=== PATIENT | male | born 1960 | race African-American/Black ===

== ENCOUNTER 2017-07-04 17:41 | Emergency (ER) | payer OTHER ==
[~2017-07-04] VITALS: Ht 190.5 cm; Wt 72.6 kg
[~2017-07-04 17:41] MED LIST: LACTULOSE20 GM/301 ORAL
[2017-07-04 17:43] VITALS: BP 126/85
[2017-07-04 18:18] VITALS: BP 123/77
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
== END 2017-07-04 18:22 | disposition home or self-care (01) ==
LOC: EDBD 17:41 → EMR 18:04
DX: R10.9 Unspecified abdominal pain (principal); Z85.028 Personal history of other malignant neoplasm of stomach; Z85.05 Personal history of malignant neoplasm of liver; Y09 Assault by unspecified means
CPT/HCPCS: 99282

== ENCOUNTER 2019-10-28 23:32 | Emergency (ER) | payer OTHER ==
[~2019-10-28] VITALS: Ht 185.4 cm; Wt 77.1 kg
--- NOTE | 2019-10-28 23:39 | Emergency Room Report ---
History of Present Illness General Chief Complaint: Abdominal Pain Source: Patient Present Illness HPI This is a 59-year-old male with no significant past medical history. He presents with chief complaint abdominal pain. He [address] complaint abdominal pain. This is a chronic issue for him. He has been here twice for abdominal pain in 2016 and 2017. He insist on data entry representative bring him into the hospital. Once he is here he said he does not want to stay anymore. He left without me seeing him. Allergies: Coded Allergies: No Known Allergies (Unverified , 06/12/16) COVID-19 Screening Contact w/high risk pt: No Recent Travel to affected area: No Experienced COVID-19 symptoms?: No Patient History Past Medical History: see triage record, old chart reviewed Past Surgical History: other Pertinent Family History: none Social History: Denies: smoking Immunizations: other Reviewed Nursing Documentation: PMH: Agreed; PSxH: Agreed Nursing Documentation-PMH Hx Cancer: Yes - Stomach cancer, Liver cancer Hx Gastrointestinal Problems: Yes - abd surgery Medical Decision Making Diagnostic Impression: Primary Impression: Abdominal pain Qualified Codes: R10.84 - Generalized abdominal pain ER Course Patient presents with abdominal pain. This is a chronic issue for him. I did not see this patient because he refused any treatment once he got to the ER and then walked out. Status: unchanged Disposition: LEFT W/OUT BEING SEEN Condition: Stable Robles Ahn MD Oct 28, 2019 23:39
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
== END 2019-10-28 23:50 | disposition left against medical advice (07) ==
LOC: EDBD 23:32 → EDUNIT# 23:32 → EMR 23:45
DX: R10.84 Generalized abdominal pain (principal); Z53.21 Procedure and treatment not carried out due to patient leaving prior to being seen by health care provider; Z85.05 Personal history of malignant neoplasm of liver; Z85.028 Personal history of other malignant neoplasm of stomach
CPT/HCPCS: 99282